=== PATIENT | female | born 1990 | race Caucasian/White ===

== ENCOUNTER 2018-04-09 19:52 | Emergency (ER) | payer OTHER ==
[~2018-04-09] VITALS: Ht 170.2 cm; Wt 68.0 kg
[2018-04-09 21:29] VITALS: BP 136/84
== END 2018-04-09 21:29 | disposition home or self-care (01) ==
LOC: ER 19:52
DX: S61.216A Laceration without foreign body of right little finger without damage to nail, initial encounter (principal); W26.8XXA Contact with other sharp object(s), not elsewhere classified, initial encounter; Y92.009 Unspecified place in unspecified non-institutional (private) residence as the place of occurrence of the external cause; Y93.89 Activity, other specified; Y99.8 Other external cause status

== ENCOUNTER → 2020-05-24 | Outpatient (CLI) | payer BC | LOC: CAT 14:35 → ULTRA 14:35 | PROVIDERS: ATTEND Nurse Practitioner | DX: N28.1 Cyst of kidney, acquired (principal) ==

== ENCOUNTER → 2020-06-08 | Outpatient (CLI) | payer BC, OTHER | LOC: CAT 10:23 | PROVIDERS: ATTEND Nurse Practitioner | DX: K76.89 Other specified diseases of liver (principal) ==

== ENCOUNTER → 2021-05-04 | Outpatient (CLI) | payer BC, OTHER | LOC: ULTRA 08:32 | PROVIDERS: ATTEND Nurse Practitioner | DX: N83.202 Unspecified ovarian cyst, left side (principal); D25.9 Leiomyoma of uterus, unspecified; R63.5 Abnormal weight gain; R14.0 Abdominal distension (gaseous); R68.89 Other general symptoms and signs ==